=== PATIENT | female | born 1990 | race Caucasian/White ===

== ENCOUNTER 2016-03-13 13:45 | Emergency (ER) | payer SELFPAY ==
--- NOTE | 2016-03-13 14:08 | ER Document Report ---
ED Medical Screen (RME) - General Stated Complaint: TOOTH PAIN Notes: 25 yo female c/o left upper dental pain. tooth cracked. x 2 days. no facial swelling. no fever TRAVEL OUTSIDE OF THE [place] IN LAST 30 DAYS: No - Related Data Allergies/Adverse Reactions: No Known Allergies Allergy (Verified 04/29/14 15:49) Past Medical History - Immunizations Hx Diphtheria, Pertussis, Tetanus Vaccination: Yes Physical Exam - Vital signs Vitals: Temp Pulse Resp BP Pulse Ox 98.4 F 87 16 125/66 100 03/13/16 14:05 03/13/16 14:05 03/13/16 14:05 03/13/16 14:05 03/13/16 14:05 Course - Vital Signs Vital signs: Temp Pulse Resp BP Pulse Ox 98.4 F 87 16 125/66 100 03/13/16 14:05 03/13/16 14:05 03/13/16 14:05 03/13/16 14:05 03/13/16 14:05
[2016-03-13] MEDS ORDERED: OXYCODONE-ACETAMINOPHEN 5-325 MG TABLET PO ONE (14:54)
[2016-03-13] MEDS ORDERED: PENICILLIN V POTASSIUM 500 MG TABLET PO ONE (14:54)
--- NOTE | 2016-03-13 14:55 | ER Document Report ---
HPI - HPI Patient complains to provider of: dental pain Onset: Other - 2 days Onset/Duration: Persistent Quality of pain: Achy Pain Level: 5 Context: Patient complains of dental pain to the left upper jaw for the past 2 days. Patient denies any fever or facial swelling. Associated Symptoms: Other - Dental pain. denies: Fever, Headache Exacerbated by: Denies Relieved by: Denies Similar symptoms previously: Yes Recently seen / treated by doctor: No - ROS ROS below otherwise negative: Yes Systems Reviewed and Negative: Yes All other systems reviewed and negative - CONSTITUTIONAL Constitutional: DENIES: Fever, Chills - EENT EENT: DENIES: Sore Throat Notes: Dental pain - NEURO Neurology: DENIES: Headache, Weakness - RESPIRATORY Respiratory: DENIES: Trouble Breathing, Coughing - GASTROINTESTINAL Gastrointestinal: DENIES: Nausea, Patient vomiting - REPRODUCTIVE Reproductive: DENIES: : - MUSCULOSKELETAL Musculoskeletal: DENIES: Back Pain, Neck Pain - DERM Skin Color: Normal Skin Problems: None Past Medical History - General Information source: Patient - Social History Smoking Status: Current Every Day Smoker Chew tobacco use (# tins/day): No Frequency of alcohol use: None Drug Abuse: None Occupation: retail Lives with: Family Family History: Reviewed & Not Pertinent Patient has suicidal ideation: No Patient has homicidal ideation: No - Medical History Medical History: Negative Renal/ Medical History: Denies: Hx Peritoneal Dialysis Surgical Hx: Negative - Immunizations Hx Diphtheria, Pertussis, Tetanus Vaccination: Yes Vertical Provider Document - CONSTITUTIONAL Agree With Documented VS: Yes Exam Limitations: No Limitations General Appearance: WD/WN, No Apparent Distress - INFECTION CONTROL TRAVEL OUTSIDE OF THE [place] IN LAST 30 DAYS: No - HEENT HEENT: Atraumatic, Normocephalic. negative: Pharyngeal Exudate, Pharyngeal Tenderness, Pharyngeal Erythema, Tympanic Membrane Red, Tympanic Membrane Bulging Mouth Diagram: 1 - Dental caries, fracture, no gingival abscess, no trismus. - NECK Neck: Normal Inspection, Supple. negative: Lymphadenopathy-Left, Lymphadenopathy-Right - RESPIRATORY Respiratory: Breath Sounds Normal, No Respiratory Distress, Chest Non-Tender O2 Sat by Pulse Oximetry: 100 - CARDIOVASCULAR Cardiovascular: Regular Rate, Regular Rhythm, No Murmur - BACK Back: Normal Inspection - MUSCULOSKELETAL/EXTREMETIES Musculoskeletal/Extremeties: MAEW - NEURO Level of Consciousness: Awake, Alert, Appropriate Motor/Sensory: No Motor Deficit - DERM Integumentary: Warm, Dry, No Rash Course - Vital Signs Vital signs: Temp Pulse Resp BP Pulse Ox 98.4 F 87 16 125/66 100 03/13/16 14:05 03/13/16 14:05 03/13/16 14:05 03/13/16 14:05 03/13/16 14:05 Discharge - Discharge Clinical Impression: Toothache Condition: Stable Disposition: HOME, SELF-CARE Instructions: Penicillin V K ([facility]), Toothache ([facility]), Oral Narcotic Medication ( [facility]), Dentist Additional Instructions: Return immediately for any new or worsening symptoms Followup with your dental care provider, call tomorrow to make a followup appointment Prescriptions: Naproxen [Naprosyn 250 Nmg Tablet] 1 tab PO BID #14 tablet Oxycodone HCl/Acetaminophen [Percocet 5-325 mg Tablet] 1 - 2 tab PO ASDIR PRN # 15 tablet PRN Reason: Penicillin V Potassium [Penicillin Vk 500 mg Tablet] 500 mg PO BID #20 tablet Forms: Parent Work Note, Return to Work Referrals: [facility] [Provider Group] - Follow up as needed
[2016-03-13 15:15] VITALS: BP 120/77
== END 2016-03-13 15:15 | disposition home or self-care (01) ==
LOC: ER 13:45
DX: K08.9 Disorder of teeth and supporting structures, unspecified (principal); F17.200 Nicotine dependence, unspecified, uncomplicated
CPT/HCPCS: 99282

== ENCOUNTER 2016-04-10 16:22 | Emergency (ER) | payer SELFPAY ==
--- NOTE | 2016-04-10 17:07 | ER Document Report ---
ED Medical Screen (RME) - General Stated Complaint: STOOL PROBLEM Notes: 25 yo female c/o rectal bleeding this morning with bowel movement. bright red bleeding. + hx/o hemorrhoids. reports being constipated several days ago, took stool softener. no abdominal pain, no n/v TRAVEL OUTSIDE OF THE [place] IN LAST 30 DAYS: No - Related Data Allergies/Adverse Reactions: No Known Allergies Allergy (Verified 04/10/16 17:06) Past Medical History Renal/ Medical History: Denies: Hx Peritoneal Dialysis - Immunizations Hx Diphtheria, Pertussis, Tetanus Vaccination: Yes Physical Exam - Vital signs Vitals: Temp Pulse Resp BP Pulse Ox 97.9 F 94 16 121/67 98 04/10/16 17:03 04/10/16 17:03 04/10/16 17:03 04/10/16 17:03 04/10/16 17:03 Course - Vital Signs Vital signs: Temp Pulse Resp BP Pulse Ox 97.9 F 94 16 121/67 98 04/10/16 17:03 04/10/16 17:03 04/10/16 17:03 04/10/16 17:03 04/10/16 17:03
[2016-04-10 17:34] LABS: ABSOLUTE EOSINOPHILS # (AUTO) 0.2 10^3/uL (0.0-0.6); ABSOLUTE LYMPHOCYTES (AUTO) 2.1 10^3/uL (0.5-4.7); ABSOLUTE MONOCYTES (AUTO) 0.8 10^3/uL (0.1-1.4); ABSOLUTE NEUT (AUTO) 6.2 10^3/uL (1.7-8.2); BASOPHILS % (AUTO) 0.4 % (0-2); EOSINOPHILS % (AUTO) 2.6 % (0-6); HEMATOCRIT 39.6 % (36.0-47.0); HEMOGLOBIN 13.5 g/dL (12.0-15.5); HGB HCT DIFFERENCE 0.9; LYMPHOCYTES % (AUTO) 22.7 % (13-45); MEAN CORPUSCULAR HEMOGLOBIN 31.8 pg (27.0-33.4); MEAN CORPUSCULAR VOLUME 93 fl (80-97); MONOCYTES % (AUTO) 8.1 % (3-13); RED BLOOD COUNT 4.25 10^6/uL (3.72-5.28); RED CELL DISTRIBUTION WIDTH 13.2 % (11.5-14.0); SEGMENTED NEUTROPHILS % (AUTO) 66.2 % (42-78); WHITE BLOOD COUNT 9.4 10^3/uL (4.0-10.5)
--- NOTE | 2016-04-10 19:47 | ER Document Report ---
ED General - General Chief Complaint: Rectal Bleeding Stated Complaint: STOOL PROBLEM Notes: Patient presents to the emergency department with complaints of rectal bleeding once this afternoon with a bm. She reports she noted blood clots. She denies other symptoms such as abdominal pain fever vomiting diarrhea. Denies rectal intercourse. She reports this has never happened to her before. She does report history of hemorrhoids. TRAVEL OUTSIDE OF THE [place] IN LAST 30 DAYS: No - HPI Onset: This afternoon Onset/Duration: Sudden Quality of pain: Other - Tender Severity: Severe Pain Level: 4 Associated symptoms: None Exacerbated by: Denies Relieved by: Denies Similar symptoms previously: No Recently seen / treated by doctor: No - Related Data Allergies/Adverse Reactions: No Known Allergies Allergy (Verified 04/10/16 17:06) Past Medical History - General Information source: Patient Last Menstrual Period: implanon - Social History Smoking Status: Current Every Day Smoker Cigarette use (# per day): Yes Chew tobacco use (# tins/day): No Frequency of alcohol use: None Drug Abuse: None Lives with: Family Family History: Other - great grandmother colon cancer Patient has suicidal ideation: No Patient has homicidal ideation: No - Medical History Medical History: Negative Renal/ Medical History: Denies: Hx Peritoneal Dialysis Surgical Hx: Negative - Immunizations Hx Diphtheria, Pertussis, Tetanus Vaccination: Yes Review of Systems - Review of Systems Notes: Review HPI for review of systems., All other systems negative Physical Exam - Vital signs Vitals: Temp Pulse Resp BP Pulse Ox 97.9 F 94 16 121/67 98 04/10/16 17:03 04/10/16 17:03 04/10/16 17:03 04/10/16 17:03 04/10/16 17:03 - Notes Notes: PHYSICAL EXAMINATION: GENERAL: Well-appearing and in no acute distress HEAD: Atraumatic, normocephalic. EYES: Pupils equal round and reactive to light, extraocular movements intact, sclera anicteric, conjunctiva are normal. ENT: nares patent, oropharynx clear without exudates. Moist mucous membranes. NECK: Normal range of motion, supple without lymphadenopathy LUNGS: CTAB and equal. No wheezes rales or rhonchi. HEART: Regular rate and rhythm without murmurs ABDOMEN: Soft, no tenderness. No guarding, no rebound BACK: Noc/o pain EXTREMITIES: Normal range of motion, no pitting edema. No cyanosis. NEUROLOGICAL: Cranial nerves grossly intact. Normal sensory/motor exams. PSYCH: Normal mood, normal affect. SKIN: Warm, Dry, normal turgor, no rashes or lesions noted - Rectal Tenderness: No Stool: Heme negative Course - Re-evaluation Re-evalutation: 04/10/16 I have consulted the attending provider per [facility] guidelines Patient was instructed on all results. Patient was instructed to follow up with GI for possible colonoscopy as indicated. She was also instructed on stool softener as needed. - Vital Signs Vital signs: Temp Pulse Resp BP Pulse Ox 98.7 F 81 16 111/65 98 04/10/16 20:07 04/10/16 20:07 04/10/16 18:40 04/10/16 20:07 04/10/16 20:07 - Laboratory Result Diagrams: 04/10/16 17:15 Discharge - Discharge Clinical Impression: Rectal bleeding, Elevated blood pressure reading Condition: Stable Disposition: HOME, SELF-CARE Instructions: Rectal Bleeding, Unclear Cause (OM), Gastroenterology Additional Instructions: *You have been evaluated for rectal bleeding *monitor your stools *Follow up with a primary care provider within one week *Follow-up with a solar sales representative for colonoscopy as indicated *Return to ED for worsening condition, changes, needs *Return to ED if not better in 24 hours Forms: Elevated Blood Pressure, Return to Work
[2016-04-10 20:10] VITALS: BP 111/65
== END 2016-04-10 20:11 | disposition home or self-care (01) ==
LOC: ER 16:22
DX: K62.5 Hemorrhage of anus and rectum (principal); R03.0 Elevated blood-pressure reading, without diagnosis of hypertension; F17.210 Nicotine dependence, cigarettes, uncomplicated; Z87.19 Personal history of other diseases of the digestive system; Z97.5 Presence of (intrauterine) contraceptive device
CPT/HCPCS: 36415; 82272; 84703; 85025; 99283

== ENCOUNTER 2018-10-21 22:06 | Emergency (ER) | payer SELFPAY ==
[2018-10-22] MEDS ORDERED: LIDOCAINE 1% INJ-PF (10 MG/ML) 30 ML SDV INJ ONE (02:01)
[2018-10-22] MEDS ORDERED: CEFTRIAXONE INJ 250 MG VIAL IM ONE (02:01)
[2018-10-22] MEDS ORDERED: DOXYCYCLINE HYCLATE 100 MG TABLET PO ONE (02:01)
--- NOTE | 2018-10-22 02:24 | ER Document Report ---
HPI - HPI Time Seen by Provider: 10/22/18 01:30 Pain Level: 3 Context: Patient is a 27-year-old female that comes to the emergency department for chief complaint of 3 weeks of worsening symptoms of initially congestion, then cough, and now sinus pressure. She states now her sinuses are very tender especially on the left side. She states she is coughing up sometimes clear, sometimes greenish sputum. She denies fever. Symptoms are worse when she is lying down with a cough. She denies wheezing. She does smoke. She does report intermittent developing pain in both years as well. She denies vomiting. Patient secondarily tells me that she was exposed to her ex boyfriend who reportedly tested positive for gonorrhea. She denies abdominal pain, vaginal discharge, flank pain. She states she is hoping to get treated for this however. - REPRODUCTIVE Reproductive: DENIES: : - DERM Skin Color: Normal Past Medical History - General Information source: Patient - Social History Smoking Status: Current Every Day Smoker Chew tobacco use (# tins/day): No Smoking Education Provided: Yes - <3 min Frequency of alcohol use: Social Drug Abuse: None Lives with: Family Family History: Other - great grandmother colon cancer Patient has suicidal ideation: No Patient has homicidal ideation: No Renal/ Medical History: Denies: Hx Peritoneal Dialysis Surgical Hx: Negative - Immunizations Hx Diphtheria, Pertussis, Tetanus Vaccination: Yes Vertical Provider Document - CONSTITUTIONAL General Appearance: WD/WN, No Apparent Distress - INFECTION CONTROL TRAVEL OUTSIDE OF THE [place] IN LAST 30 DAYS: No - HEENT HEENT: Atraumatic, Normocephalic. negative: Normal ENT Exam - Patient does have notable tenderness over the maxillary sinuses and slight tenderness over the frontal sinuses. She has a lot of nasal congestion and some swelling of the tu rbinates. Left ear shows serous effusion, right ear unremarkable. Oropharyngeal exam shows mild erythema the posterior pharynx with some postnasal drainage but no concerning findings otherwise. Oral pharyngeal exam otherwise unremarkable. - NECK Neck: Normal Inspection - RESPIRATORY Respiratory: Breath Sounds Normal, No Respiratory Distress, Other - Occasional congested sounding cough, no tachypnea, clear lungs, unremarkable exam otherwise - CARDIOVASCULAR Cardiovascular: Regular Rate, Regular Rhythm - GI/ABDOMEN Gastrointestinal: Abdomen Soft, Abdomen Non-Tender - BACK Back: Normal Inspection - MUSCULOSKELETAL/EXTREMETIES Musculoskeletal/Extremeties: MAEW, FROM, Non-Tender - NEURO Level of Consciousness: Awake, Alert, Appropriate Motor/Sensory: No Motor Deficit, No Sensory Deficit - DERM Integumentary: Warm, Dry, No Rash Course - Re-evaluation Re-evalutation: Patient has what appears to be sinus infection probably initially from a virus but this has progressed over 3 weeks. She also has evidence of some bronchitis but she has no wheezing, tachypnea, or signs of distress. No hypoxia. She is requesting treatment for both sinuses and STD exposure. Given Rocephin, placing on doxycycline. Discussed smoking cessation, expectations, follow-up, and return precautions. Patient states understanding and agreement. - Vital Signs Vital signs: Temp Pulse Resp BP Pulse Ox 98 F 81 16 128/76 H 97 10/21/18 22:29 10/21/18 22:29 10/21/18 22:29 10/21/18 22:29 10/21/18 22:29 Discharge - Discharge Clinical Impression: Productive cough, STD exposure Sinusitis Qualifiers: Sinusitis location: unspecified location Chronicity: acute Recurrence: not specified as recurrent Qualified Code(s): J01.90 - Acute sinusitis, unspecified Ear pain Qualifiers: Laterality: bilateral Qualified Code(s): H92.03 - Otalgia, bilateral Condition: Stable Disposition: HOME, SELF-CARE Additional Instructions: Your evaluation is consistent with a developing sinus infection and probably bro nchitis as well. Take the doxycycline antibiotic as prescribed to completion. Use the Flonase nasal spray, continue your current [id number] medications. Stop smoking. You have been covered for the STD exposure. Avoid sexual intercourse for 1 week. Any sexual partner also needs to be treated. Return for any concerning symptoms including fever, difficulty breathing, developing abdominal pain, or any other concerning or worsening symptoms. Prescriptions: Doxycycline Hyclate 100 mg PO BID #14 capsule Fluticasone Propionate [Flonase Nasal [place] 50 Mcg/[place] 16 gm] 2 sprays NASL Q12 #1 inhaler Forms: Smoking Cessation Education, Return to Work
[2018-10-22 03:16] VITALS: BP 124/78
== END 2018-10-22 03:14 | disposition home or self-care (01) ==
LOC: ER 22:06
DX: J01.90 Acute sinusitis, unspecified (principal); H92.03 Otalgia, bilateral; R05 Cough; Z20.2 Contact with and (suspected) exposure to infections with a predominantly sexual mode of transmission
CPT/HCPCS: J0696; J3490

== ENCOUNTER 2019-04-24 21:56 | Emergency (ER) | payer SELFPAY ==
[2019-04-24] MEDS ORDERED: DEXAMETHASONE CONC 1 MG/ML SOLN PO ONE (23:45)
[2019-04-24] MEDS ORDERED: KETOROLAC TROMETHAMINE 60 MG/2 ML SDV IM ONE (23:45)
--- NOTE | 2019-04-24 23:45 | ER Document Report ---
HPI - HPI Patient complains to provider of: Sore throat Time Seen by Provider: 04/24/19 23:38 Pain Level: 2 Notes: 28-year-old female to the emergency department with complaints of a sore throat that began yesterday. She states that her tonsils are also swollen. She states that she sees "pus" on the back of them. She is unsure if she has had a fever but she has not measured it but she states she has been "hot" at home. She states that she is likely had sick contact that she works at the [employer]. She denies any other symptoms. - ROS Systems Reviewed and Negative: Yes All other systems reviewed and negative - CONSTITUTIONAL Constitutional: DENIES: Fever, Chills - EENT EENT: REPORTS: Sore Throat. DENIES: Ear Pain, Eye problems - NEURO Neurology: DENIES: Headache, Weakness, Vision blurred, Dizzinesss / Vertigo - CARDIOVASCULAR Cardiovascular: DENIES: Chest pain - RESPIRATORY Respiratory: DENIES: Trouble Breathing, Coughing - GASTROINTESTINAL Gastrointestinal: DENIES: Abdominal Pain, Black / Bloody Stools - URINARY Urinary: DENIES: Dysuria, Urgency, Frequency - REPRODUCTIVE Reproductive: DENIES: : - MUSCULOSKELETAL Musculoskeletal: DENIES: Extremity pain - DERM Skin Color: Normal Skin Problems: None Past Medical History - General Information source: Patient - Social History Smoking Status: Never Smoker Chew tobacco use (# tins/day): No Frequency of alcohol use: Occasional Drug Abuse: None Family History: Other - great grandmother colon cancer Patient has suicidal ideation: No Patient has homicidal ideation: No Renal/ Medical History: Denies: Hx Peritoneal Dialysis - Immunizations Hx Diphtheria, Pertussis, Tetanus Vaccination: Yes Vertical Provider Document - CONSTITUTIONAL Agree With Documented VS: Yes General Appearance: WD/WN, No Apparent Distress - INFECTION CONTROL TRAVEL OUTSIDE OF THE [place] IN LAST 30 DAYS: No - HEENT HEENT: Atraumatic Notes: There is symmetric bilateral tonsillar hypertrophy with noted exudates. There is no evidence for Seng's angina or peritonsillar abscess. Patient does not have hot potato voice. The uvula is midline and nonedematous. She is not drooling. Airway is grossly patent. Bilateral TMs are intact and without erythema or bulging. Neck is supple without lymphadenopathy and no nuchal rigidity. Course - Re-evaluation Re-evalutation: 04/25/19 Impression: Strep throat. Will start patient on Amoxcillin and have her follow up with PCP. Encouraged to return if worsening symptoms. She agrees with the plan. - Vital Signs Vital signs: Temp Pulse Resp BP Pulse Ox 98.7 F 101 H 18 134/76 H 101 H 04/24/19 22:24 04/24/19 22:24 04/24/19 22:24 04/24/19 22:24 04/24/19 22:24 Discharge - Discharge Clinical Impression: Strep throat, Sore throat Condition: Stable Disposition: HOME, SELF-CARE Instructions: Strep Throat ([facility]) Additional Instructions: Complete all antibiotics. Push fluids. Tylenol and Motrin for any fevers and pain. Return if any worsening symptoms. Prescriptions: Amoxicillin Trihydrate [Amoxil 500 mg Capsule] 500 mg PO TID #30 capsule Ibuprofen [Motrin 800 mg Tablet] 800 mg PO Q8H PRN #30 tab PRN Reason: Forms: Return to Work Referrals: [facility] [Provider Group] - Follow up as needed
[2019-04-25 00:58] VITALS: BP 112/67
== END 2019-04-25 01:07 | disposition home or self-care (01) ==
LOC: ER 21:56
DX: J02.0 Streptococcal pharyngitis (principal)
CPT/HCPCS: 99283; 96372; 87880; J1885; J8540

== ENCOUNTER 2019-07-04 12:49 | Emergency (ER) | payer BC ==
[2019-07-04 13:07] VITALS: BP 139/77
[2019-07-04] MEDS ORDERED: KETOROLAC TROMETHAMINE 60 MG/2 ML SDV IM ONE (13:09)
[2019-07-04] MEDS ORDERED: PENICILLIN V POTASSIUM 500 MG TABLET PO ONE (13:09)
[2019-07-04] MEDS ORDERED: LIDOCAINE 2% VISCOUS SOLN 15 ML UDCUP PO ONE (13:09)
--- NOTE | 2019-07-04 13:16 | ER Document Report ---
ED Oral Problem - General Chief Complaint: Toothache Stated Complaint: TOOTH PAIN Time Seen by Provider: 07/04/19 13:09 Mode of Arrival: Ambulatory Information source: Patient Notes: 28-year-old female presented to ED for complaint of dental pain to tooth #1 and 32. The tooth #32 has a cavity tooth #1 has cavity and cracked. States she was supposed to have these teeth pulled by the dentist but now the dentist office is closed due to the coronavirus pandemic and she cannot get into see the dentist at this time. We will treat the patient with penicillin VK, Toradol, and viscous lidocaine to the area. States she will use [id number] ibuprofen after this. TRAVEL OUTSIDE OF THE [place] IN LAST 30 DAYS: No - HPI Patient complains to provider of: Toothache Onset: Yesterday Onset: Gradual Quality of pain: Sharp, Throbbing Severity: Moderate Pain Level: 3 Associated symptoms: Toothache Worsened by: Cold - Cigarettes and chewing Relieved by: Nothing Similar symptoms previously: Yes Recently seen / treated by doctor/dentist: No - Related Data Allergies/Adverse Reactions: No Known Allergies Allergy (Verified 07/04/19 13:03) Past Medical History - General Information source: Patient - Social History Smoking Status: Current Every Day Smoker - 6 to 10 cigarettes a day she will be stopping while her tooth is hurting Cigarette use (# per day): Yes Chew tobacco use (# tins/day): No Smoking Education Provided: Yes - 4 minutes Frequency of alcohol use: None Drug Abuse: None Occupation: [employer] Lives with: Alone Family History: Reviewed & Not Pertinent, Malignancy, Other - great grandmother colon cancer Patient has homicidal ideation: No - Past Medical History Cardiac Medical History: Reports: None Pulmonary Medical History: Reports: None EENT Medical History: Reports: None Neurological Medical History: Reports: None Endocrine Medical History: Reports: None Renal/ Medical History: Reports: None Malignancy Medical History: Reports: None GI Medical History: Reports: None Musculoskeletal Medical History: Reports None Skin Medical History: Reports None Psychiatric Medical History: Reports: None Traumatic Medical History: Reports: None Infectious Medical History: Reports: None Past Surgical History: Reports: Hx Gynecologic Surgery - - Immunizations Hx Diphtheria, Pertussis, Tetanus Vaccination: Yes Review of Systems - Review of Systems Constitutional: No symptoms reported EENT: Mouth pain, Dental problem Cardiovascular: No symptoms reported Respiratory: No symptoms reported Gastrointestinal: No symptoms reported Genitourinary: No symptoms reported Female Genitourinary: No symptoms reported Musculoskeletal: No symptoms reported Skin: No symptoms reported Hematologic/Lymphatic: No symptoms reported Neurological/Psychological: No symptoms reported -: Yes All other systems reviewed and negative Physical Exam - Vital signs Vitals: Temp Pulse Resp BP Pulse Ox 99.4 F 89 16 139/77 H 97 07/04/19 12:55 07/04/19 12:55 07/04/19 12:55 07/04/19 12:55 07/04/19 12:55 Interpretation: Normal - General General appearance: Appears well, Alert - HEENT Head: Normocephalic, Atraumatic Eyes: Normal Pupils: PERRL Ears: Normal External canal: Normal Tympanic membrane: Normal Sinus: Normal Nasal: Normal Mouth/Lips: Caries Mucous membranes: Normal Teeth diagram: 1 - Decayed teeth #1 and 32 #1 is cracked Pharynx: Normal Neck: Normal - Respiratory Respiratory status: No respiratory distress Chest status: Nontender Breath sounds: Normal Chest palpation: Normal - Cardiovascular Rhythm: Regular Heart sounds: Normal auscultation Murmur: No - Abdominal Inspection: Normal Distension: No distension Bowel sounds: Normal Tenderness: Nontender Organomegaly: No organomegaly - Back Back: Normal, Nontender - Extremities General upper extremity: Normal inspection, Nontender, Normal color, Normal ROM, Normal temperature General lower extremity: Normal inspection, Nontender, Normal color, Normal ROM, Normal temperature, Normal weight bearing. No: Chao's sign - Neurological Neuro grossly intact: Yes Cognition: Normal Orientation: AAOx4 [place] Coma Scale Eye Opening: Spontaneous [place] Coma Scale Verbal: Oriented [place] Coma Scale Motor: Obeys Commands [place] Coma Scale Total: 15 Speech: Normal Motor strength normal: LUE, RUE, LLE, RLE Sensory: Normal - Psychological Associated symptoms: Normal affect, Normal mood - Skin Skin Temperature: Warm Skin Moisture: Dry Skin Color: Normal Course - Re-evaluation Re-evalutation: 07/04/19 13:18 Presentation is most consistent with likely an infected tooth. Airway is patent. Vitals within normal limits. Patient is able swallow without any difficulty. There is no significant facial swelling. No evidence of Melchor angina, apical abscess, or airway obstruction. Patient will be started on antibiotics. I've instructed to follow-up with dentistry as earliest ability for definitive management. At this time will discharge with return precautions and follow-up recommendations. Verbal discharge instructions given a the bedside and opportunity for questions given. Medication warnings reviewed. Patient is in agreement with this plan and has verbalized understanding of return precautions and the need for primary care follow-up in the next 24-72 hours. - Vital Signs Vital signs: Temp Pulse Resp BP Pulse Ox 99.4 F 89 16 139/77 H 97 07/04/19 13:03 07/04/19 12:55 07/04/19 12:55 07/04/19 12:55 07/04/19 12:55 Discharge - Discharge Clinical Impression: Pain due to dental caries Condition: Stable Disposition: HOME, SELF-CARE Additional Instructions: TOOTHACHE: Your pain is due to dental decay. The tooth must be repaired in order for you to feel better. You will, therefore, be referred to a dentist. We do not have dentists on the staff at [facility]. Severe swelling or drainage around a tooth usually means a dental abscess. This also requires evaluation and treatment by the dentist, but antibiotics may be prescribed while awaiting dental treatment. You should be rechecked immediately if you develop major swelling of the face, increasing pain, a lump in the jaw or gums, headache, difficulty swallowing, or fever. PENICILLIN V K: You have been given a prescription for Penicillin VK. Your physician has determined that this is the best antibiotic for your condition. Pen VK can be taken with meals, however more of the antibiotic gets into the bloodstream if it's taken on an empty stomach. Penicillin usually has no side effects. However, allergy to penicillins is common. If you have had an allergic reaction to any drug of the penicillin family, you should never take any other penicillin. Notify your doctor at once if you develop hives, itching, swelling, faintness, or shortness of breath. Toradol Injection You have been given an injection of ketorolac tromethamine (Toradol). This is an excellent, safe drug for pain control. It also has potent antiinflammatory action. You should have significant pain relief within about one hour. Toradol is not addicting and is non-sedating. It does not interfere with driving or work. Call or return if you develop itching, hives, shortness of breath, or rash. I have given you a syringe of viscous lidocaine. You can place a small amount of this on your finger and rub it on the tooth and gums that are painful. You can do this every 4 hours. If you do more often than every 4 hours it will evaluate the skin on your gums and make it more painful. Please no smoking, no chewing gum, and no sucking on straws are these will all make your pain much worse. FOLLOW-UP CARE: You have been referred for follow-up care to the dentists listed below. Call the dentists office for an appointment as you were instructed or within the next two days. If you experience worsening or a significant change in your symptoms, notify the physician immediately or return to the Emergency Department at any time for re-evaluation. [facility] [address] [place] [address] [facility] [place] [address] [facility] [address] [facility] (4[facility]) [facility] [place] [facility] [address] [place] [address]'s [facility] [email or web address] [address] [place] [address] Friday- 8:00am to 5:00 pm Will see patients from other [facility]. Charges based on income and family size and accepts Medicare, Medicaid, and Insurances Will pull molars [facility] Formerly named [facility] [id number] Hours of Operation 8:00 am - 4:30 pm weekdays The following dental offices accept Medicaid: [facility] Dr. William Dr. Foster Dr. Ortiz Dr. Flores Tommie Varela Lutsavage, and Jeri oral surgery Dr. De La Fuente ([place]) Dr. Torres ([place]) [facility] Drs. Stephens ([place]) Dr. Nicholas ([place]) [facility] Dr. Garcia ([place]) Drs. Louis and ([place]) Medicaid Care Line Prescriptions: Penicillin V Potassium [Penicillin Vk 500 mg Tablet] 500 mg PO BID #20 tablet Forms: Elevated Blood Pressure, Special Work Note, Smoking Cessation Education, Return to Work
== END 2019-07-04 13:24 | disposition home or self-care (01) ==
LOC: ER 12:49
DX: K02.9 Dental caries, unspecified (principal); K03.81 Cracked tooth; K08.89 Other specified disorders of teeth and supporting structures; F17.210 Nicotine dependence, cigarettes, uncomplicated; Z71.6 Tobacco abuse counseling
CPT/HCPCS: 99282; 96372; J1885; J3490

== ENCOUNTER 2019-09-10 13:35 | Emergency (ER) | payer BC ==
[2019-09-10] MEDS ORDERED: HYDROCODONE/ACETAMINOPHEN 5-325 MG (6 TAB/ER DISP) PO PRN (16:39)
[2019-09-10] MEDS ORDERED: PENICILLIN V POTASSIUM 500 MG TABLET PO ONE (16:40)
--- NOTE | 2019-09-10 16:44 | ER Document Report ---
ED General - General Chief Complaint: Ear Pain Stated Complaint: RIGHT EAR PAIN,MOUTH PAIN Notes: Patient is a 28-year-old white female with a past medical history of broken wisdom teeth who presents the emergency department the chief complaint of swelling around the site of the right upper posterior wisdom tooth molar. She states it began yesterday. States the swelling is worse today. States it feels like there is fluid in the area of the medial gumline. She states the pain is referred into the throat in the right ear. She denies any fevers or difficulty breathing or swallowing. She adds that she has not a dentist appointment on Friday to have the tooth extracted but she is concerned if there is an infection they want to see her. She also adds that she was riding in a car in close proximity is unmasked with a coworker who tested positive for COVID-19. She states at the time they did not know she was infected with this virus and the patient was exposed to her coughing in the car. The patient is currently asymptomatic in that respect but is concerned given her exposure, having young children and an upcoming dentist appointment. She denies any other pain, complaints or concerns at this time. TRAVEL OUTSIDE OF THE [place] IN LAST 30 DAYS: No - Related Data Allergies/Adverse Reactions: No Known Allergies Allergy (Verified 09/10/19 16:41) Past Medical History - Social History Smoking Status: Unknown if Ever Smoked Family History: Reviewed & Not Pertinent, Malignancy, Other - great grandmother colon cancer Past Surgical History: Reports: Hx Gynecologic Surgery - - Immunizations Hx Diphtheria, Pertussis, Tetanus Vaccination: Yes Review of Systems - Review of Systems Constitutional: denies: Fever EENT: Ear pain, Throat pain, Dental problem. denies: Throat swelling Cardiovascular: denies: Chest pain Respiratory: denies: Cough, Short of breath, Sputum Gastrointestinal: denies: Abdominal pain, Nausea Genitourinary: denies: Burning, Dysuria Musculoskeletal: denies: Muscle pain, Muscle stiffness Skin: denies: Change in color Hematologic/Lymphatic: denies: Easy bleeding Neurological/Psychological: denies: Headaches Physical Exam - Vital signs Vitals: Temp Pulse Resp BP Pulse Ox 98.6 F 88 16 118/82 98 09/10/19 14:13 09/10/19 14:13 09/10/19 14:13 09/10/19 14:13 09/10/19 14:13 - General General appearance: Appears well, Alert In distress: None - HEENT Head: Normocephalic, Atraumatic Eyes: Normal Conjunctiva: Normal Eyelashes: Normal Pupils: PERRL Ears: Normal External canal: Normal Tympanic membrane: Normal Nasal: Normal Mouth/Lips: Normal Teeth diagram: 1 - Fractured molar, wisdom 2 - Fractured wisdom molar 3 - Area of swelling with fluctuance Pharynx: Other - Patent airway, handling secretions well. No sublingual or submental swelling. No trismus. Neck: Normal, Supple. No: Lymphadenopathy - Respiratory Respiratory status: No respiratory distress Chest status: Nontender Breath sounds: Normal Chest palpation: Normal - Cardiovascular Rhythm: Regular Heart sounds: Normal auscultation - Abdominal Inspection: Normal Distension: No distension Bowel sounds: Normal Tenderness: Nontender Organomegaly: No organomegaly - Neurological Neuro grossly intact: Yes Cognition: Normal Orientation: AAOx4 - Psychological Associated symptoms: Normal affect, Normal mood - Skin Skin Temperature: Warm Skin Moisture: Dry Skin Color: Normal Course - Re-evaluation Re-evalutation: 09/10/19 18:17 Patient tolerated dental block and I&D well. She is pending a rapid COVID-19 test. At this point she is ready for discharge with pending results. We will call her with the result as soon as it returns. She will continue to quarantine and self isolate until she receives a negative result. If it is positive we will give her further instruction. The plan is if negative she will see her dentist as scheduled on Friday for continued care, follow-up and check/reevaluation. I advised that she return here or any ER immediately with any new, persistent or worsening symptoms. She verbalized understood and agreed. - Vital Signs Vital signs: Temp Pulse Resp BP Pulse Ox 98.6 F 88 16 118/82 98 09/10/19 16:20 09/10/19 14:13 09/10/19 14:13 09/10/19 14:13 09/10/19 14:13 Procedures - Incision and Drainage Right Time completed: 18:14 - Gingival abscess Type: Simple Anesthetic type: 1% Lidocaine w/epi mL's of anesthetic: 18 - 18-gauge Incision Method: Incision made with needle Amount/type of drainage: 1.5 cc of purulence and blood Notes: 09/10/19 18:15 Pocket collapsed after drainage. Patient tolerated well Discharge - Discharge Clinical Impression: Gingival abscess Condition: Stable Disposition: HOME, SELF-CARE Instructions: Oral Narcotic Medication ([facility]), Post Incision and Drainage Additional Instructions: Please follow-up with your dentist on Friday morning if your COVID-19 test today is negative. Otherwise please call and reschedule. Please quarantine until you get your results as negative. If they return positive you will be given further instructions. Please take the antibiotics as prescribed. Please take the pain pills you were given only as needed for pain while at rest. Do not drive or operate any machinery while taking these medicines. Please return here or any ER immediately with any new, persistent or worsening symptoms. Prescriptions: Penicillin V Potassium [Penicillin Vk 500 mg Tablet] 500 mg PO QID #39 tablet Forms: Return to Work
[2019-09-10] MEDS ORDERED: LIDOCAINE 2%/EPINEPHRINE INJ 1.7 ML CARTRIDGE DENT ONE (16:45)
[2019-09-10 19:10] VITALS: BP 128/86
== END 2019-09-10 18:40 | disposition home or self-care (01) ==
LOC: ER 13:35
PROC: 0C95XZZ Drainage of Upper Gingiva, External Approach (ICD-10-PCS; principal; 2019-09-10)
DX: K04.7 Periapical abscess without sinus (principal); H92.01 Otalgia, right ear; K08.89 Other specified disorders of teeth and supporting structures; Z20.828 Contact with and (suspected) exposure to other viral communicable diseases
CPT/HCPCS: 41800; 99283; 87070; 87880; 87635; C9803

== ENCOUNTER 2019-09-14 00:45 | Emergency (ER) | payer BC ==
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
[2019-09-14 02:51] LABS: APPEARANCE,URINE SLIGHTLY-CLOUDY; BILIRUBIN,URINE NEGATIVE (NEGATIVE); COLOR,URINE YELLOW; GLUCOSE, URINE NEGATIVE (NEGATIVE); KETONES,URINE NEGATIVE (NEGATIVE); LEUKOCYTE ESTERASE,URINE TRACE (NEGATIVE); NITRITE,URINE NEGATIVE (NEGATIVE); PROTEIN,URINE NEGATIVE (NEGATIVE); URINE SPECIFIC GRAVITY 1.021; UROBILINOGEN,URINE NEGATIVE mg/dL (<2.0)
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
[2019-09-14] MEDS ORDERED: CEFTRIAXONE INJ 250 MG VIAL IM ONE (06:33)
[2019-09-14 06:58] LABS: BACTERIA (WET MOUNT) 3+ BACTERIA SEEN; RBCS (WET MOUNT) NO RBCS SEEN; T.VAGINALIS (WET MOUNT) NO TRICHOMONAS SEEN; WBCS (WET MOUNT) 2+ WBCS SEEN; YEAST (WET MOUNT) NO YEAST SEEN
[2019-09-14] MEDS ORDERED: LIDOCAINE 1% INJ-PF (10 MG/ML) 30 ML SDV ONE (07:18)
[2019-09-14 07:30] VITALS: BP 135/79
[2019-09-14 08:27] LABS: CHLAM PCR DETECTED (NOT DETECT)
== END 2019-09-14 07:39 | disposition home or self-care (01) ==
LOC: ER 00:45
DX: Z20.2 Contact with and (suspected) exposure to infections with a predominantly sexual mode of transmission (principal); R10.2 Pelvic and perineal pain; F17.200 Nicotine dependence, unspecified, uncomplicated
CPT/HCPCS: 99283; 96372; 87210; 81025; 81001; 87491; 87591; J3490; J0696